=== PATIENT | male | born 1960 | race Two or more races ===

== ENCOUNTER → 2020-06-16 | Outpatient (CLI) | payer OTHER ==
--- NOTE | 2020-06-16 17:33 | RAD ---
INDICATION: Reason: Chronic shoulder pain, no injury / Spl. Instructions: / History: COMPARISON: None. IMPRESSION: Right shoulder: 3 views obtained. 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 There is also hypertrophic changes at the acromioclavicular joint. No acute fracture or dislocation. Electronically signed by: Mateus Appiah MD (06/16/2020 5:31 PM) [id number]
== END ==
LOC: RAD 16:20
PROVIDERS: ATTEND Family Medicine
DX: M19.011 Primary osteoarthritis, right shoulder (principal); M25.78 Osteophyte, vertebrae; G89.29 Other chronic pain
CPT/HCPCS: 73030